=== PATIENT | male | born 1970 | race African-American/Black ===

== ENCOUNTER 2016-07-04 19:37 | Emergency (ER) | payer OTHER ==
[~2016-07-04] VITALS: Ht 177.8 cm; Wt 167.8 kg
[2016-07-04 20:15] VITALS: BP 180/105
== END 2016-07-04 20:31 | disposition home or self-care (01) ==
LOC: ER 19:37
DX: R04.0 Epistaxis (principal); I10 Essential (primary) hypertension; Z87.891 Personal history of nicotine dependence

== ENCOUNTER 2016-11-17 11:09 | Emergency (ER) | payer OTHER | END 2016-11-17 15:14 | disposition home or self-care (01) | LOC: ER 11:09 | DX: R07.9 Chest pain, unspecified (principal); I10 Essential (primary) hypertension; Z87.891 Personal history of nicotine dependence ==